=== PATIENT | male | born 1955 | race Hispanic/Latino ===

== ENCOUNTER 2023-07-14 07:00 | Day surgery (SDC) | payer BC, OTHER ==
[2023-07-09 10:46] LABS: Absolute Lymphocytes (CBC) 1.5 K/uL (0.7-4.9); Hematocrit 44.7 % (39.6-49.0); Lymphocytes % 18.6 % (15.3-44.8); MCV 90.8 fL (80-100); MPV 7.6 fL (7.6-11.3); Platelets 324 thou/uL (152-406); RBC Red Blood Cell Count 4.92 M/uL (4.33-5.43)
[2023-07-09 10:54] LABS: Protime INR 0.99
[2023-07-09 10:59] LABS: Potassium 4.4 mEq/L (3.5-5.1)
--- NOTE | 2023-07-09 10:59 | RAD REPORT ---
EXAM DESCRIPTION: RAD - Chest Pa And Lat (2 Views) - 07/09/2023 10:40 am CLINICAL HISTORY: Pre op pending heart catheterization/hypertension Chest pain. COMPARISON: No comparisons TECHNIQUE: PA and lateral views of the chest were obtained. FINDINGS: The lungs are hyperexpanded compatible with COPD. The heart is upper limit of normal in si ze. No fracture or aggressive bony process. IMPRESSION: COPD without acute process identified. The USPSTF recommends annual screening for lung cancer with low-dose CT (LDCT) in adults aged 50 to 80 years who have a 20 pack-year smoking history and currently smoke or have quit within the past 15 years.
--- NOTE | 2023-07-09 15:27 | EKG ---
Test Date: 2023-07-09 Test Time: 11:26:49 Technology Instructor: NOAH MEASUREMENT RESULTS: Intervals: Rate: 83 NV: 148 QRSD: 86 QT: 382 QTc: 448 [place]: P: 61 NV: 148 QRS: 49 T: 91 INTERPRETIVE STATEMENTS: Normal sinus rhythm Normal ECG Compared to ECG 04/10/2005 12:30:00 Myocardial infarct finding no longer present Electronically Signed On 07-09-23 15:26:17 SPEED RUNNER by Ish Parson
[2023-07-14] MEDS ORDERED: HEPA 1000U/500MLS 2,000 UNIT/1,000 ML BAG IV ONE (07:04)
[2023-07-14] MEDS ORDERED: LIDOCAINE 1% 20 ML MDV ONE (07:04)
[2023-07-14] MEDS ORDERED: VERAPAMIL HCL 10 MG/4 ML VIAL IV ONE (07:05)
[2023-07-14] MEDS ORDERED: MIDAZOLAM HCL 2 MG/2 ML INJ ONE (07:06)
[2023-07-14] MEDS ORDERED: FENTANYL CITR 100 MCG/2 ML ONE (07:06)
[2023-07-14] MEDS ORDERED: HEPARIN 5000 UNIT/ML 1 ML VIAL ONE (07:07)
[2023-07-14] MEDS ORDERED: TICAGRELOR 90 MG TABLET PO ONE (07:07)
[2023-07-14] MEDS ORDERED: HEPARIN 10,000 UNIT/10 ML VIAL IV ONE (07:07)
[2023-07-14] MEDS ORDERED: ATROPINE SULF 1 MG/10 ML SYR IV ONE (07:07)
[2023-07-14] MEDS ORDERED: CLOPIDOGREL 75 MG TABLET ONE (07:08)
[2023-07-14] MEDS ORDERED: ASPIRIN 325 MG TAB ONE (07:08)
[2023-07-14] MEDS ORDERED: NA CHLORIDE 0.9% 500 ML ONE (07:20)
[2023-07-14 08:35] VITALS: TEMP 97.8; O2SAT 100
--- NOTE | 2023-07-14 08:39 | OP ---
Date of Procedure: 07/14/2023 Surgeon: RENA MCCALL Procedures Performed: 1.Selective coronary angiogram. 2.Left heart catheterization. Indication: Chest pain with abnormal stress test. Access: Right radial artery 6-Pakistani closed with TR band. Complications: None. Bleeding: Less than 20 mL. Description Of Procedure: After risks, benefits, and alternatives were explained, the patient agreed to procedure and signed informed consent. The patient was brought into the cardiac catheterization laboratory, prepped and draped in the usual sterile fashion. Then I accessed right radial artery usi ng pediatric micropuncture kit, placed a 6-Pakistani Slender sheath and took 5-Pakistani Nuevo 4.0 catheter over the J-wire into the aortic root, engaged the left main, took standard views and then the RCA an d took standard views and then over the wire catheter was pushed into the LV across aortic valve, steven sure the LVEDP. Pullback did not record any gradient. Removed the catheter and the sheath and place d TR band with good hemostasis. Findings: 1.Left main normal. 2.LAD; proximal LAD stent with 30% ISR, mid LAD 30% stenosis. Rest of the LAD with luminal irregula rities. Diagonal branches with luminal irregularities. 3.Left circumflex is a large vessel with proximal 30% stenosis. The rest is normal. 4.RCA: It is dominant circulation. Proximal 20%, mid 30% stenosis, distal 30%, and the PLB has pro ximal 30% stenosis. 5.LVEDP is borderline at 12 mmHg. Conclusion: 1.Patent LAD stent. 2.Moderate coronary artery disease elsewhere. 3.Borderline elevated LVEDP. Recommendation: Medical management. SR/MODL Voice ID: [id number] Report ID: [id number]
[2023-07-14 09:53] VITALS: BP 113/81
== END 2023-07-14 10:00 | disposition home or self-care (01) ==
LOC: CCL 07:00
PROVIDERS: ATTEND Internal Medicine
DX: I25.10 Atherosclerotic heart disease of native coronary artery without angina pectoris (principal); T82.855A Stenosis of coronary artery stent, initial encounter; I11.0 Hypertensive heart disease with heart failure; I50.20 Unspecified systolic (congestive) heart failure; E11.9 Type 2 diabetes mellitus without complications; E78.5 Hyperlipidemia, unspecified; Z87.891 Personal history of nicotine dependence; Z79.02 Long term (current) use of antithrombotics/antiplatelets; Z79.84 Long term (current) use of oral hypoglycemic drugs; Z79.4 Long term (current) use of insulin; Z79.899 Other long term (current) drug therapy
CPT/HCPCS: 93005; 85025; 80048; 36415; 83721; 85610; 82947; 85730; 71046; 93458; 76937; C1893; Q9966; J1644; J2001; J7040; J0461; J2250; J3010

== ENCOUNTER 2024-08-18 04:22 | Emergency (ER) | payer OTHER ==
--- OUTSIDE RECORDS SUMMARY | 2024-08-18 04:27 | XMS REPORT | Continuity of Care Document ---
Author Name Unknown Address [address] [facility] [place]. [address] [place] [address] [facility] Address [address] [facility]. [address] [place] [address] Care Team Providers Care Appliance Repairer Name Role Phone KELLY JARAMILLO Attending Clinician Unavailable LAB90 Attending Clinician Unavailable NORIS SPENCER Attending Clinician Unavailable Temo Dia Attending Clinician Unavailable Temo Dia Admitting Clinician Unavailable Physician, No Primary or Family Admitting Clinic king Unavailable Payers Payer Name Policy Type Policy Number Effective Date Expirati on Date Source [facility] [id number] 2022 00:00:00 Problems Condition Name Condition Details Condition Category Status Onset Date Resolution Date Last Treatment Date Treating Clinician Comments Source Hyperkalem ia Hyperkalem ia Disease Active 03-08 00:00: 00 Zamzam nuñez Well adult exam Well adult exam Disease Active 03-08 00:00: 00 Zamzam nuñez Hypertensi on Hypertensi on Disease Active 01-27 00:00: 00 Zamzam nuñez Chronic systolic CHF (congestiv e heart failure) (multi HCC) Chronic systolic CHF (congestiv e heart failure) (multi HCC) Disease Active 01-27 00:00: 00 Zamzam Ngold - Externa l Diabetes Diabetes Disease Active 01-27 00:00: 00 Zamzam Corderoybold - Externa l Overweight (BMI 25.0-29.9) Overweight (BMI 25.0-29.9) Disease Active 01-27 00:00: 00 Zamzam Ngold - Externa l DM type 2 with diabetic mixed hyperlipid emia (multi HCC) DM type 2 with diabetic mixed hyperlipid emia (multi HCC) Disease Active 01-27 00:00: 00 Zamzam Ngold - Externa l CAD (coronary artery disease) CAD (coronary artery disease) Disease Active 07-12 00:00: 00 Zamzam Ngold - Externa l History of heart artery stent History of heart artery stent Disease Active 07-12 00:00: 00 Zamzam Ngold - Externa l Allergies, Adverse Reactions, Alerts Allergy Name Allergy Type Status Severity Reaction(s) Onset Date Inactive Date Treating Clinician Comments Source No Known Allergie s DA Active U 2021-07 00:00: [facility] Social History Social Habit Start Date Stop Date Quantity Comments Source Gender identity Enedina Roy - External Sexual orientation Abhay Roy - External History of Occupation Zamzam Roy - External History of tobacco use Cigarette Smoker Zamzam redd - External Alcoholic beverage intake 2024-07-19 00:00:00 2024-07-19 00:00:00 .43 /d Zamzam Roy - External Cigarettes smoked current (pack per day) - Reported 2023-12-07 00:00:00 2023-12-07 00:00:00 Zamzam Roy - External Cigarette pack-years 2023-12-07 00:00:00 2023-12-07 00:00:00 Zamzam Roy - External Tobacco use and exposure 2023-12-07 00:00:00 2023-12-07 00:00:00 Smokeless tobacco non-user Zamzam Roy - External Alcohol intake 2023-09-07 00:00:00 2023-09-07 00:00:00 .43 /d Zamzam Roy - Gisell History of Social function 2023-03-29 00:00:00 2023-03-29 00:00:00 Zamzam Roy - External Education 2023-01-27 00:00:00 2023-01-27 00:00:00 6 Zamzam Roy - External Alcohol Comment 2023-01-27 00:00:00 2023-01-27 00:00:00 occasionally Zamzam Roy - External Tobacco Comment 2023-01-26 00:00:00 2023-01-26 00:00:00 Stopped 40 years ago Zamzam Roy - External Sex 2020-10-08 17:31:19 2020-10-08 17:31:19 Male (finding) Zamzam Roy - External Sex assigned at 1955 00:00:00 1955 00:00:00 Zmazam Roy - External Smoking Status Start Date Stop Date Source Ex-smoker 2023-12-07 00:00:00 2023-12-07 00:00:00 Abhay murdock Kirill - External Medications Ordered Medication Name Filled Medication Name Start Date Stop Date Current Medication? Ordering Clinician Indication Dosage Frequency Signature (SIG) Comments Components Source Metoprolol Succinate 25 MG oral TABLET SR 24 HR 07-19 10:44: 14 Yes 25mg QD Take 1 tablet (25 mg total) by mouth daily. Zamzam nuñez Valsartan 80 MG oral Tablet 07-19 10:44: 14 Yes 80mg QD Take 1 tablet (80 mg total) by mouth daily. Zamzam nuñez Aspirin (Aspirin 81) 81 MG oral Tablet Delayed Response 07-19 10:44: 14 Yes 81mg QD Take 1 tablet (81 mg total) by mouth daily. Zamzam nuñez Eplerenone 25 MG oral Tablet 07-19 10:44: 14 Yes [id number] 25mg QD Take 1 tablet (25 mg total) by mouth daily. Zamzam nuñez Loratadine (CLARITIN) 10 MG oral tablet 07-19 00:00: 00 Yes [id number] 10mg QD Take 1 tablet (10 mg total) by mouth daily as needed for allergies. Zamzam nuñez Metoprolol Succinate 25 MG oral TABLET SR 24 HR 2023-07 10:53: 55 Yes 25mg QD Take 1 tablet (25 mg total) by mouth daily. Zamzam nuñez Valsartan 80 MG oral Tablet 2023-07 10:53: 55 Yes 80mg QD Take 1 tablet (80 mg total) by mouth daily. Zamzam nuñez Aspirin (Aspirin 81) 81 MG oral Tablet Delayed Response 2023-07 10:53: 55 Yes 81mg QD Take 1 tablet (81 mg total) by mouth daily. Zamzam nuñez Eplerenone 25 MG oral Tablet 2023-07 10:53: 55 Yes [id number] 25mg QD Take 1 tablet (25 mg total) by mouth daily. Zamzam nuñez Atorvastati n Calcium 40 MG oral Tablet 04-03 00:00: 00 Yes [id number] 3 40mg QD Take 1 tablet (40 mg total) by mouth nightly. Zamzam nuñez Glucose Blood (NanoVascuch Verio) in vitro Strip 03-21 00:00: 00 Yes [id number] 3 USE 1 STRIP TO CHECK GLUCOSE TWICE DAILY. Zamzam nuñez Glimepiride 2 MG oral Tablet 01-02 00:00: 00 Yes [id number] 3 2mg Take 1 tablet (2 mg total) by mouth every morning (before breakfast) . Zamzam nuñez Metoprolol Succinate 25 MG oral TABLET SR 24 HR 12-06 08:25: 20 Yes 25mg QD Take 1 tablet (25 mg total) by mouth daily. Zamzam nuñez Valsartan 80 MG oral Tablet 12-06 08:25: 20 Yes 80mg QD Take 1 tablet (80 mg total) by mouth daily. Zamzam nuñez Aspirin (Aspirin 81) 81 MG oral Tablet Delayed Response 12-06 08:25: 20 Yes 81mg QD Take 1 tablet (81 mg total) by mouth daily. Zamzam nuñez Eplerenone 25 MG oral Tablet 12-06 08:25: 20 Yes [id number] 25mg QD Take 1 tablet (25 mg total) by mouth daily. Zamzam nuñez Metformin HCl 500 MG oral Tablet 409 00:00: 00 Yes [id number] 3 500mg Take 1 tablet (500 mg total) by mouth in the morning and 1 tablet (500 mg total) in the evening. Take with meals. Zamzam nuñez Clopidogrel Bisulfate (PLAVIX) 75 MG oral Tablet 09-07 08:38: 47 09-07 00:00 :00 No [id number] 75mg Take 1 tablet (75 mg total) by mouth daily. Zamzam nuñez Metoprolol Succinate 25 MG oral TABLET SR 24 HR 09-07 08:31: 14 Yes 25mg Take 1 tablet (25 mg total) by mouth daily. Zamzam nuñez Valsartan 80 MG oral Tablet 09-07 08:31: 14 Yes 80mg Take 1 tablet (80 mg total) by mouth daily. Zamzam nuñez Aspirin (Aspirin 81) 81 MG oral Tablet Delayed Response 09-07 08:31: 14 Yes 81mg Take 1 tablet (81 mg total) by mouth daily. Zamzam nuñez Eplerenone 25 MG oral Tablet 09-07 08:31: 14 Yes [id number] 25mg Take 1 tablet (25 mg total) by mouth daily. Zamzam nuñez Continuous Blood Gluc Transmit (Y-Klubcom G6 Transmitter ) does not apply [facility] [place] 09-07 00:00: 00 06-05 00:00 :00 No [id number] 3 Monitor glucose. Zamzam nuñez Continuous Blood Gluc Sensor (Dexcom G6 Sensor) does not apply Misc 09-07 00:00: 00 06-05 00:00 :00 No [id number] 3 Check BS. Zamzam nuñez Continuous Blood Gluc Freight Car Builder (Dexcom G6 Freight Car Builder) does not apply Device 09-07 00:00: 00 06-05 00:00 :00 No [id number] 3 Check BS. Zamzam nuñez Glucose Blood (OneTouch Verio) in vitro Strip 08-23 00:00: 00 Yes [id number] 3 USE 1 STRIP TO CHECK GLUCOSE TWICE DAILY. Zamzam nuñez Eplerenone 25 MG oral Tablet 2022-07 09:37: 37 Yes [id number] 25mg Take 1 tablet (25 mg total) by mouth daily. Zamzam nuñez Clopidogrel Bisulfate (PLAVIX) 75 MG oral Tablet 2022-07 09:37: 20 Yes [id number] 75mg Take 1 tablet (75 mg total) by mouth daily. Zamzam nuñez Spironolact one 25 MG oral Tablet 2022-07 09:37: 01 06-07 00:00 :00 No 25mg Take 1 tablet (25 mg total) by mouth daily. Zamzam nuñez Metoprolol Succinate 25 MG oral TABLET SR 24 HR 2022-07 09:34: 44 Yes 25mg Take 1 tablet (25 mg total) by mouth daily. Zamzam nuñez Valsartan 80 MG oral Tablet 2022-07 09:34: 44 Yes 80mg Take 1 tablet (80 mg total) by mouth daily. Zamzam nuñez Aspirin (Aspirin 81) 81 MG oral Tablet Delayed Response 2022-07 09:34: 44 Yes 81mg Take 1 tablet (81 mg total) by mouth daily. Zamzam nuñez Lancets (OneTouch Delica Plus [id number]) does not apply Misc 2022-07 00:00: 00 Yes [id number] 3 1{appli cation} QD Inject 1 Applicatio n into the skin daily as directed. Zamzam nuñez Lancets (OneTouch Delica Plus [id number]) does not apply Misc 04-05 00:00: 00 Yes [id number] 3 USE DIRECTED ONCE DAILY Zamzam nuñez Metoprolol Succinate 25 MG oral TABLET SR 24 HR 03-03 09:51: 53 Yes 25mg Take 1 tablet (25 mg total) by mouth daily. Zamzam nuñez Valsartan 80 MG oral Tablet 03-03 09:51: 53 Yes 80mg Take 1 tablet (80 mg total) by mouth daily. Zamzam nuñez Aspirin (Aspirin 81) 81 MG oral Tablet Delayed Response 03-03 09:51: 53 Yes 81mg Take 1 tablet (81 mg total) by mouth daily. Zamzam nuñez Spironolact one 25 MG oral Tablet 03-03 09:51: 53 Yes 25mg Take 1 tablet (25 mg total) by mouth daily. Zamzam nuñez Metformin HCl 500 MG oral Tablet 01-28 00:00: 00 Yes [id number] 3 500mg Take 1 tablet (500 mg total) by mouth in the morning and 1 tablet (500 mg total) in the evening. Take with meals. Zamzam nuñez Glucose Blood in vitro Strip 01-28 00:00: 00 Yes [id number] 3 Check BS twice daily Zamzam nuñez Lancets 30G does not apply Misc 01-28 00:00: 00 Yes [id number] 3 Use as directed once daily Zamzam nuñez Blood Glucose Monitoring Suppl (Blood Glucose Monitor System) w/Device does not apply Kit 01-28 00:00: 00 06-05 00:00 :00 No [id number] 3 Use as directed once daily Zamzam nuñez Atorvastati n Calcium 40 MG oral Tablet 01-27 10:19: 03 01-27 00:00 :00 No 40mg Take 1 tablet (40 mg total) by mouth daily Zamzam nuñez Prasugrel HCl 10 MG oral Tablet 01-27 10:03: 23 01-27 00:00 :00 No Take by mouth Zamzam nuñez Metoprolol Succinate 25 MG oral TABLET SR 24 HR 01-27 09:54: 00 Yes 25mg Take 1 tablet (25 mg total) by mouth daily Zamzam nuñez Valsartan 80 MG oral Tablet 01-27 09:54: 00 Yes 80mg Take 1 tablet (80 mg total) by mouth daily Zamzam nuñez Aspirin (Aspirin 81) 81 MG oral Tablet Delayed Response 01-27 09:54: 00 Yes 81mg Take 1 tablet (81 mg total) by mouth daily Zamzam nuñez Spironolact one 25 MG oral Tablet 01-27 09:54: 00 Yes 25mg Take 1 tablet (25 mg total) by mouth daily Zamzam nuñez Atorvastati n Calcium 40 MG oral Tablet 01-27 00:00: 00 Yes [id number] 3 40mg Take 1 tablet (40 mg total) by mouth nightly Zamzam nuñez Glimepiride 2 MG oral Tablet 01-27 00:00: 00 Yes [id number] 3 2mg Take 1 tablet (2 mg total) by mouth every morning (before breakfast) Zamzam nuñez Metformin HCl 500 MG oral Tablet 01-27 00:00: 00 Yes [id number] 3 500mg Take 1 tablet (500 mg total) by mouth daily (with breakfast) Zamzam nuñez Prasugrel HCl 10 MG oral Tablet 12-10 00:00: 00 06-07 00:00 :00 No 1{tbl} Take 1 tablet by mouth daily Zamzam nuñez Immunizations Ordered Immunization Name Filled Immunization Name Date Status Comments Source Influenza Virus Vaccine, No Preserv, age 6 months and up 2022-05-21 00:00:00 Completed Zamzam Collier External Influenza Virus Vaccine, No Preserv, age 6 months and up 2022-05-21 00:00:00 Completed Zamzam Jameson Influenza Virus Vaccine, No Preserv, age 6 months and up 2021-05-20 00:00:00 Completed Zamzam Jameson Influenza Virus Vaccine, No Preserv, age 6 months and up 2021-05-20 00:00:00 Completed Zamzam Seybold - External Influenza Virus Vaccine, No Preserv, age 6 months and up Unknown Completed Zamzam Seybold - External Influenza Virus Vaccine, No Preserv, age 6 months and up Unknown Completed Zamzam Seybold - External Influenza Virus Vaccine, Quadrivalent, High Dose, Age 65 And Up Unknown Completed Zamzam S eybold - External Influenza Virus Vaccine, No Preserv, age 6 months and up Unknown Completed Zamzam Seybold - External Influenza Virus Vaccine, No Preserv, age 6 months and up Unknown Completed Zamzam Seybold - External Influenza Virus Vaccine, Quadrivalent, High Dose, Age 65 And Up Unknown Completed Zamzam S eybold - External Influenza Virus Vaccine, No Preserv, age 6 months and up Unknown Completed Zamzam Seybold - External Influenza Virus Vaccine, No Preserv, age 6 months and up Unknown Completed Zamzam Seybold - External Influenza Virus Vaccine, Quadrivalent, High Dose, Age 65 And Up Unknown Completed Zamzam S eybold - External Influenza Virus Vaccine, No Preserv, age 6 months and up Unknown Completed Zamzam Seybold - External Influenza Virus Vaccine, No Preserv, age 6 months and up Unknown Completed Zamzam Seybold - External Influenza Virus Vaccine, Quadrivalent, High Dose, Age 65 And Up Unknown Completed Zamzam S eybold - External Influenza Virus Vaccine, No Preserv, age 6 months and up Unknown Completed Zamzam Seybold - External Influenza Virus Vaccine, No Preserv, age 6 months and up Unknown Completed Zamzam Seybold - External Influenza Virus Vaccine, Quadrivalent, High Dose, Age 65 And Up Unknown Completed Zamzam S eybold - External FLUAD TRIVALENT PF Influenza Vaccine, Adjuvanted, Preserve Unknown Completed Zamzam Seybold - External Influenza Virus Vaccine, No Preserv, age 6 months and up Unknown Completed Zamzam Seybold - External Influenza Virus Vaccine, No Preserv, age 6 months and up Unknown Completed Zamzam Seybold - External Influenza Virus Vaccine, Quadrivalent, High Dose, Age 65 And Up Unknown Completed Zamzam S eybold - External FLUAD TRIVALENT PF Influenza Vaccine, Adjuvanted, Preserve Unknown Completed Zamzam Seybold - External Vital Signs Vital Name Observation Time Observation Value Comments Anaya amanueltoro Systolic blood pressure 2024-07-19 16:38:00 124 mm[Hg] Zamzam Zarate ld - External Diastolic blood pressure 2024-07-19 16:38:00 78 mm[Hg] Zamzam Seybo ld - External Heart rate 2024-07-19 16:38:00 83 /min Kelse y Seybold - External Body temperature 2024-07-19 16:38:00 36.61 Digna Zamzam Seybold - External Respiratory rate 2024-07-19 16:38:00 18 /min Zamzam Seybold - External Body height 2024-07-19 16:38:00 177.8 cm Enedina ey Seybold - External Body weight 2024-07-19 16:38:00 86.24 kg Enedina ey Seybold - External BMI 2024-07-19 16:38:00 27.28 kg/m2 Enedina ey Seybold - External Oxygen saturation in Arterial blood by Pulse oximetry 2024-07-19 16:38:00 97 /min Zamzam Seybo ld - External Systolic blood pressure 2024-06-05 16:46:00 124 mm[Hg] Zamzam Seybo ld - External Diastolic blood pressure 2024-06-05 16:46:00 82 mm[Hg] Zamzam Seybo ld - External Heart rate 2024-06-05 16:46:00 78 /min Tejinderse y Seybold - External Body temperature 2024-06-05 16:46:00 36.61 Digna Zamzam Seybold - External Respiratory rate 2024-06-05 16:46:00 16 /min Zamzam Seybold - External Body height 2024-06-05 16:46:00 177.8 cm Enedina ey Seybold - External Body weight 2024-06-05 16:46:00 86.183 kg Enedina ey Seybold - External BMI 2024-06-05 16:46:00 27.26 kg/m2 Enedina ey Seybold - External Oxygen saturation in Arterial blood by Pulse oximetry 2024-06-05 16:46:00 97 /min Zamzam Seybo ld - External Systolic blood pressure 2024-03-08 13:40:00 117 mm[Hg] Zamzam Seybo ld - External Diastolic blood pressure 2024-03-08 13:40:00 80 mm[Hg] Zamzam Seybo ld - External Heart rate 2024-03-08 13:40:00 75 /min Kelse y Seybold - External Body temperature 2024-03-08 13:40:00 35.94 Digna Zamzam Seybold - External Respiratory rate 2024-03-08 13:40:00 16 /min Zamzam Seybold - External Body height 2024-03-08 13:40:00 177.8 cm Enedina ey Seybold - External Body weight 2024-03-08 13:40:00 83.915 kg Enedina ey Seybold - External BMI 2024-03-08 13:40:00 26.54 kg/m2 Enedina ey Seybold - External Oxygen saturation in Arterial blood by Pulse oximetry 2024-03-08 13:40:00 100 /min Zamzam Seybo ld - External Systolic blood pressure 2023-12-07 13:23:00 124 mm[Hg] Zamzam Seybo ld - External Diastolic blood pressure 2023-12-07 13:23:00 71 mm[Hg] Zamzam Seybo ld - External Heart rate 2023-12-07 13:23:00 79 /min Kelse y Seybold - External Body temperature 2023-12-07 13:23:00 36.94 Digna Zamzam Seybold - External Respiratory rate 2023-12-07 13:23:00 15 /min Zamzam Seybold - External Body height 2023-12-07 13:23:00 177.8 cm Enedina ey Seybold - External Body weight 2023-12-07 13:23:00 86.183 kg Enedina ey Seybold - External BMI 2023-12-07 13:23:00 27.26 kg/m2 Enedina ey Seybold - External Oxygen saturation in Arterial blood by Pulse oximetry 2023-12-07 13:23:00 97 /min Zamzam Seybo ld - External Systolic blood pressure 2023-09-07 14:29:00 115 mm[Hg] Zamzam Seybo ld - External Diastolic blood pressure 2023-09-07 14:29:00 80 mm[Hg] Zamzam Seybo ld - External Heart rate 2023-09-07 14:29:00 87 /min Kelse y Seybold - External Body temperature 2023-09-07 14:29:00 36.11 Digna Zamzam Seybold - External Respiratory rate 2023-09-07 14:29:00 20 /min Zamzam Seybold - External Body height 2023-09-07 14:29:00 177.8 cm Enedina ey Seybold - External Body weight 2023-09-07 14:29:00 86.183 kg Enedina ey Seybold - External BMI 2023-09-07 14:29:00 27.26 kg/m2 Enedina ey Seybold - External Oxygen saturation in Arterial blood by Pulse oximetry 2023-09-07 14:29:00 98 /min Zamzam Seybo ld - External Systolic blood pressure 2023-06-07 15:33:00 125 mm[Hg] Zamzam Seybo ld - External Diastolic blood pressure 2023-06-07 15:33:00 78 mm[Hg] Zamzam Seybo ld - External Heart rate 2023-06-07 15:33:00 89 /min Kelse y Seybold - External Body temperature 2023-06-07 15:33:00 37.06 Digna Zamzam Seybold - External Respiratory rate 2023-06-07 15:33:00 15 /min Zamzam Seybold - External Body height 2023-06-07 15:33:00 177.8 cm Enedina ey Seybold - External Body weight 2023-06-07 15:33:00 83.915 kg Enedina ey Seybold - External BMI 2023-06-07 15:33:00 26.54 kg/m2 Enedina ey Seybold - External Oxygen saturation in Arterial blood by Pulse oximetry 2023-06-07 15:33:00 99 /min Zamzam Seybo ld - External Systolic blood pressure 2023-03-03 14:51:00 120 mm[Hg] Zamzam Seybo ld - External Diastolic blood pressure 2023-03-03 14:51:00 71 mm[Hg] Zamzam Seybo ld - External Heart rate 2023-03-03 14:51:00 88 /min Kelse y Seybold - External Body temperature 2023-03-03 14:51:00 36.61 Digna Zamzam Seybold - External Respiratory rate 2023-03-03 14:51:00 20 /min Zamzam Seybold - External Body height 2023-03-03 14:51:00 177.8 cm Enedina ey Seybold - External Body weight 2023-03-03 14:51:00 86.183 kg Enedina ey Seybold - External BMI 2023-03-03 14:51:00 27.26 kg/m2 Enedina ey Seybold - External Oxygen saturation in Arterial blood by Pulse oximetry 2023-03-03 14:51:00 97 /min Zamzam Seybo ld - External Systolic blood pressure 2023-01-27 14:49:00 126 mm[Hg] Zamzam Seybo ld - External Diastolic blood pressure 2023-01-27 14:49:00 73 mm[Hg] Zamzam Seybo ld - External Heart rate 2023-01-27 14:49:00 81 /min Kelse y Seybold - External Body temperature 2023-01-27 14:49:00 36.56 Digna Zamzam Seybold - External Respiratory rate 2023-01-27 14:49:00 15 /min Zamzam Seybold - External Body height 2023-01-27 14:49:00 177.8 cm Enedina ey Seybold - External Body weight 2023-01-27 14:49:00 81.647 kg Enedina ey Seybold - External BMI 2023-01-27 14:49:00 25.83 kg/m2 Enedina ey Seybold - External Oxygen saturation in Arterial blood by Pulse oximetry 2023-01-27 14:49:00 97 /min Zamzam Ngo ld - External Procedures Procedure Date / Time Performed Performing Clinicia n Source [facility] 2023-01-27 15:40:22 Kelly Jaramillo Seybold - External [id number] 2022-07-05 00:00:00 KUMSA.02 [facility] [id number] 2022-07-05 00:00:00 KUMSA.02 [facility] [id number] 2022-07-05 00:00:00 [email or web address].02 [facility] Encounters Start Date/Time End Date/Time Encounter Type Admission Type Attending [facility] Care Facility Care Department Encounter ID Source 2024-09-18 10:45:00 2024-09-18 10:45:00 Outpatient KELLY JARAMILLO [id number] Zamzam Roy 2024-09-05 09:45:00 2024-09-05 09:45:00 Outpatient PREZAS, KELLY JOHNS ZAMZAM [id number] Zamzam Roy 2024-07-19 10:45:00 2024-07-19 10:45:00 Outpatient PREZAS, KELLY JOHNS ZAMZAM [id number] Zamzam Roy 2024-06-06 00:00:00 2024-06-06 00:00:00 Outpatient PREZAS, KELLY JOHNS ZAMZAM [id number] Zamzam Corderotramaine 2024-06-05 11:00:00 2024-06-05 11:00:00 Outpatient PREZAS, KELLY JOHNS ZAMZAM [id number] Zamzam Roy 2024-06-05 08:45:00 2024-06-05 08:45:00 Outpatient PREZAS, KELLY JOHNS ZAMZAM [id number] [facility] 2024-06-05 08:10:00 2024-06-05 08:10:00 Outpatient LAB90 ZAMZAM JOHNS [id number] [facility] 2024-06-02 08:15:00 2024-06-02 08:15:00 Outpatient LAB90 ZAMZAM ZAMZAM [id number] [facility] 2024-05-22 09:40:00 2024-05-22 09:40:00 Outpatient TJ NORIS ZAMZAM JOHNS [id number] [facility] 2024-05-18 00:00:00 2024-05-18 00:00:00 Outpatient ZAMZAM JOHNS [id number] Zamzam [facility] 2024-05-18 00:00:00 2024-05-18 00:00:00 Outpatient ZAMZAM JOHNS [id number] [facility] 2024-05-17 00:00:00 2024-05-17 00:00:00 Outpatient ZAMZAM JOHNS [id number] [facility] 2024-05-15 00:00:00 2024-05-15 00:00:00 Outpatient PREZAS, KELLY ZAMZAM JOHNS [id number] Zamzam Corder[facility]aine 2024-04-02 00:00:00 2024-04-02 00:00:00 Outpatient PREZAS, KELLY JOHNS ZAMZAM [id number] Zamzam [facility] 2024-03-22 08:05:00 2024-03-22 08:05:00 Outpatient LAB90 ZAMZAM ZAMZAM [id number] Zamzam [facility] 2024-03-21 00:00:00 2024-03-21 00:00:00 Outpatient PREZAS, KELLY JOHNS ZAMZAM [id number] Zamzam [facility] 2024-03-16 00:00:00 2024-03-16 00:00:00 Outpatient PREZAS, KELLY JOHNS [id number] Zamzam [facility] 2024-03-14 08:15:00 2024-03-14 08:15:00 Outpatient LAB90 ZAMZAM ZAMZAM [id number] [facility] 2024-03-08 08:30:00 2024-03-08 08:30:00 Outpatient PREZAS, KELLY JOHNS ZAMZAM [id number] [facility] 2024-03-07 00:00:00 2024-03-07 00:00:00 Outpatient PREZAS, KELLY JOHNS ZAMZAM [id number] [facility] 2024-03-06 08:25:00 2024-03-06 08:25:00 Outpatient LAB90 ZAMZAM ZAMZAM [id number] [facility] 2024-01-14 00:00:00 2024-01-14 00:00:00 Outpatient ZAMZAM ZAMZAM [id number] [facility] 2024-01-07 00:00:00 2024-01-07 00:00:00 Outpatient PREZAS, KELLY JOHNS ZAMZAM [id number] Zamzam Seybold 2024-01-02 00:00:00 2024-01-02 00:00:00 Outpatient PREZAS, KELLY JOHNS ZAMZAM [id number] Zamzam Seybold 2023-12-07 08:30:00 2023-12-07 08:30:00 Outpatient PREZAS, KELLY JOHNS ZAMZAM [id number] Zamzam Seybold 2023-12-02 08:05:00 2023-12-02 08:05:00 Outpatient LAB90 ZAMZAM JOHNS [id number] [facility] 2023-10-14 00:00:00 2023-10-14 00:00:00 Outpatient PREZASKELLY [id number] Zamzam [facility] 2023-09-27 08:15:00 2023-09-27 08:15:00 Outpatient LAB90 ZAMZAM ZAMZAM [id number] Zamzam Seybold 2023-09-07 08:30:00 2023-09-07 08:30:00 Outpatient PREZAS, KELLY JOHNS ZAMZAM [id number] [facility] 2023-09-06 00:00:00 2023-09-06 00:00:00 Outpatient PREZAS, KELLY JOHNS ZAMZAM [id number] [facility] 2023-09-03 08:20:00 2023-09-03 08:20:00 Outpatient LAB90 ZAMZAM ZAMZAM [id number] [facility] 2023-08-23 00:00:00 2023-08-23 00:00:00 Outpatient PREZAS, KELLY JOHNS ZAMZAM [id number] [facility] 2023-07-13 00:00:00 2023-07-13 00:00:00 Outpatient ZAMZAM ZAMZAM [id number] [facility] 2023-06-22 00:00:00 2023-06-22 00:00:00 Outpatient ZAMZAM ZAMZAM [id number] [facility] 2023-06-07 09:45:00 2023-06-07 09:45:00 Outpatient PREZAS, KELLY JOHNS ZAMZAM [id number] Zamzam Sey[facility] 2023-06-04 09:45:00 2023-06-04 09:45:00 Outpatient PREZASKELLY ZAMZAM [id number] Zamzam Seybold 2023-05-31 08:10:00 2023-05-31 08:10:00 Outpatient LAB90 ZAMZAM JOHNS [id number] Zamzam Seybold 2023-04-05 00:00:00 2023-04-05 00:00:00 Outpatient PREZAS, KELLY ZAMZAM JOHNS [id number] Zamzam Seybold 2023-03-22 00:00:00 2023-03-22 00:00:00 Outpatient ZAMZAM JOHNS [id number] [facility] 2023-03-20 00:00:00 2023-03-20 00:00:00 Outpatient KELLY JARAMILLO [id number] [facility] 2023-03-03 10:00:00 2023-03-03 10:00:00 Outpatient KELLY JARAMILLO [id number] [facility] 2023-02-01 00:00:00 2023-02-01 00:00:00 Outpatient KELLY JARAMILLO [id number] [facility] 2023-02-01 00:00:00 2023-02-01 00:00:00 Outpatient ZAMZAM JOHNS [id number] [facility] 2023-01-28 00:00:00 2023-01-28 00:00:00 Outpatient KELLY JARAMILLO [id number] [facility] 2023-01-28 00:00:00 2023-01-28 00:00:00 Outpatient KELLY JARAMILLO [id number] [facility] 2023-01-27 11:00:00 2023-01-27 11:00:00 Outpatient LAB90 ZAMZAM JOHNS [id number] [facility] 2023-01-27 10:00:00 2023-01-27 10:00:00 Outpatient KELLY JARAMILLO [id number] [facility] 2023-01-27 00:00:00 2023-01-27 00:00:00 Outpatient ZAMZAM JOHNS [id number] [facility] 2023-01-27 00:00:00 2023-01-27 00:00:00 Outpatient ZAMZAM LONGOSEY [id number] [facility] 2022-07-05 06:19:00 2022-07-08 12:30:00 Inpatient EM Temo Dia HCAPM MEDI.01 [id number] [facility] 2022-07-06 06:51:00 2022-07-06 06:51:00 Outpatient Temo Dia HCACL LABO [id number] Results Test Description Test Time Test Comments Results Result Co mments Source Zamzam Roy - ExternalGLUCOSE BEDSIDE [id number] 06:45:00* Test Item Value Reference Range Interpretation Comme nts GLUCOSE BEDSIDE TESTING (gabriel t code = GLUBED) 186 mg/dL 70-110 H GLUCOSE BEDSIDE [id number] 20:29:00* Test Item Value Reference Range Interpretation Comme nts GLUCOSE BEDSIDE TESTING (gabriel t code = GLUBED) 212 mg/dL 70-110 H GLUCOSE BEDSIDE [id number] 16:07:00* Test Item Value Reference Range Interpretation Comme nts GLUCOSE BEDSIDE TESTING (gabriel t code = GLUBED) 177 mg/dL 70-110 H THYROID STIMULATING [id number] 12:08:00* Test Item Value Reference Range Interpretation Comme nts THYROID STIMULATING HORMONE (test code = TSH) 1.190 mcIU/ML 0.340-4.820 N NT PRO-BRAIN NATRIURETIC [id number] 12:03:00* Test Item Value Reference Range Interpretation Comme nts NT PRO-BRAIN NATRIURETIC PEP TI (test code = PROBNP) 5152 PG/ML 0-100 H BASIC METABOLIC [id number] 11:59:00* Test Item Value Reference Range Interpretation Comme nts SODIUM (test code = NA) 136 mmol/L 134-147 N POTASSIUM (test code = K) 4.1 mmol/L 3.4-5.0 N CHLORIDE (test code = CL) 103 mmol/L 100-108 N CARBON DIOXIDE (test code = CO2) 29 mmol/L 21-32 N ANION GAP (test code = GAP) 4.0 GAP calc 4.0-15.0 N GLUCOSE (test code = GLU) 218 MG/DL 70-110 H BLOOD UREA NITROGEN (test code = BUN) 14 MG/DL 7-18 N GLOMERULAR FILTRATION RATE (test code = GFR) >=60 max estimate estGFR >60 The Glomerular Filtration Rate is a calculated parameterbased on serum Creatinine, patient age and sex. GFR valuesless than 60 mL/min/1.73 square meters are indicative ofChronic Kidney Disease. Values less than 15 mL/min/1.73square meters indicate Kidney failure. The calculation forGFR is based on the CKD-EPI (2020) calculation. This formulais race indifferent and is the recommended formula for GFRby the National Kidney Foundation for Adults.The GFR will not calculate if the sex is unknown or if thepatient's age is <18 years. CREATININE (test code = CREAT) 0.9 MG/DL 0.8-1.3 N CALCIUM (test code = CA) 8.6 MG/DL 8.5-10.1 N [id number] 11:59:00* Test Item Value Reference Range Interpretation Comme nts MAGNESIUM (test code = MAG) 2.3 MG/DL 1.8-2.4 N GLUCOSE BEDSIDE [id number] 11:40:00* Test Item Value Reference Range Interpretation Comme nts GLUCOSE BEDSIDE TESTING (gabriel t code = GLUBED) 199 mg/dL 70-110 H GLUCOSE BEDSIDE [id number] 06:33:00* Test Item Value Reference Range Interpretation Comme nts GLUCOSE BEDSIDE TESTING (gabriel t code = GLUBED) 166 mg/dL 70-110 H GLUCOSE BEDSIDE [id number] 20:06:00* Test Item Value Reference Range Interpretation Comme nts GLUCOSE BEDSIDE TESTING (gabriel t code = GLUBED) 112 mg/dL 70-110 H GLUCOSE BEDSIDE [id number] 15:58:00* Test Item Value Reference Range Interpretation Comme nts GLUCOSE BEDSIDE TESTING (gabriel t code = GLUBED) 251 mg/dL 70-110 H GLUCOSE BEDSIDE [id number] 11:21:00* Test Item Value Reference Range Interpretation Comme nts GLUCOSE BEDSIDE TESTING (gabriel t code = GLUBED) 173 mg/dL 70-110 H GLUCOSE BEDSIDE [id number] 07:36:00* Test Item Value Reference Range Interpretation Comme nts GLUCOSE BEDSIDE TESTING (gabriel t code = GLUBED) 209 mg/dL 70-110 H COMPREHENSIVE METABOLIC [id number] 05:40:00* Test Item Value Reference Range Interpretation Comme nts SODIUM (test code = NA) 136 mmol/L 134-147 N POTASSIUM (test code = K) 3.8 mmol/L 3.4-5.0 N CHLORIDE (test code = CL) 103 mmol/L 100-108 N CARBON DIOXIDE (test code = CO2) 25 mmol/L 21-32 N ANION GAP (test code = GAP) 8.0 GAP calc 4.0-15.0 N GLUCOSE (test code = GLU) 210 MG/DL 70-110 H BLOOD UREA NITROGEN (test code = BUN) 18 MG/DL 7-18 N GLOMERULAR FILTRATION RATE (test code = GFR) >=60 max estimate estGFR >60 The Glomerular Filtration Rate is a calculated parameterbased on serum Creatinine, patient age and sex. GFR valuesless than 60 mL/min/1.73 square meters are indicative ofChronic Kidney Disease. Values less than 15 mL/min/1.73square meters indicate Kidney failure. The calculation forGFR is based on the CKD-EPI (202) calculation. This formulais race indifferent and is the recommended formula for GFRby the National Kidney Foundation for Adults.The GFR will not calculate if the sex is unknown or if thepatient's age is <18 years. CREATININE (test code = CREAT) 0.8 MG/DL 0.8-1.3 N TOTAL PROTEIN (test code = PROT) 6.0 G/DL 6.4-8.2 L ALBUMIN (test code = ALB) 2.7 G/DL 3.4-5.0 L GLOBULIN (test code = GLOB) 3.3 GM/dL ALBUMIN/GLOBULIN RATIO (test code = A/G) 0.8 RATIO 1.2-2.2 L CALCIUM (test code = CA) 8.4 MG/DL 8.5-10.1 L BILIRUBIN TOTAL (test code = BILT) 0.90 MG/DL 0.2-1.2 N SGOT/AST (test code = AST) 473 Unit/L 15-37 H SGPT/ALT (test code = ALT) 60 Unit/L 12-78 N ALKALINE PHOSPHATASE TOTAL (test code = ALKP) 81 Unit/L 50-136 N CBC W/AUTO [id number] 05:35:00* Test Item Value Reference Range Interpretation Comme nts WHITE BLOOD CELL (test code = WBC) 10.0 K/mm3 3.5-11.0 N RED BLOOD CELL (test code = RBC) 4.04 M/mm3 4.70-6.10 L HEMOGLOBIN (test code = HGB) 12.6 G/DL 12.3-15.9 N HEMATOCRIT (test code = HCT) 34.9 % 35.8-46.7 L MEAN CELL VOLUME (test code = MCV) 86.4 Fl 86.3-98.9 N MEAN CELL HGB (test code = MCH) 31.2 pg 28.9-34.4 N MEAN CELL HGB CONCETRATION (test code = MCHC) 36.1 G/DL 32.1-34.5 H RED CELL DISTRIBUTION WIDTH (test code = RDW) 12.6 SD 11.5-14.5 N PLATELET COUNT (test code = PLT) 232 K/mm3 150-450 N MEAN PLATELET VOLUME (test c ode = MPV) 9.50 fL 7.0-9.6 N NEUTROPHIL % (test code = NT%) 81.9 % 40-76 H IMMATURE GRANULOCYTE % (test code = IG%) 0.5 % 0.0-5.0 N LYMPHOCYTE % (test code = LY%) 9.8 % 20.5-51.1 L MONOCYTE % (test code = MO%) 7.2 % 1.7-9.3 N EOSINOPHIL % (test code = EO%) 0.2 % 0.0-6.0 N BASOPHIL % (test code = BA%) 0.4 % 0.0-2.0 N NUCLEATED RBC % (test code = NRBC%) 0.0 /100WBC% 0.0-1.0 N NEUTROPHIL # (test code = NT#) 8.2 K/mm3 1.8-7.6 H IMMATURE GRANULOCYTE # (test code = IG#) 0.05 x10 3/uL 0.00-0.03 H LYMPHOCYTE # (test code = LY#) 1.0 K/mm3 0.6-3.0 N MONOCYTE # (test code = MO#) 0.7 K/mm3 0.2-1.5 N EOSINOPHIL # (test code = EO#) 0.0 K/mm3 0.0-0.4 N BASOPHIL # (test code = BA#) 0.0 K/mm3 0.0-0.2 N NUCLEATED RBC # (test code = NRBC#) 0.0 K/mm3 0.00-0.01 N MANUAL DIFF REQUIRED (test c ode = MDIFF) NO DIFF/SCN CRITERIA GLUCOSE BEDSIDE [id number] 19:53:00* Test Item Value Reference Range Interpretation Comme nts GLUCOSE BEDSIDE TESTING (gabriel t code = GLUBED) 273 mg/dL 70-110 H BASIC METABOLIC [id number] 16:23:00* Test Item Value Reference Range Interpretation Comme nts SODIUM (test code = NA) 135 mmol/L 134-147 N POTASSIUM (test code = K) 4.4 mmol/L 3.4-5.0 N CHLORIDE (test code = CL) 101 mmol/L 100-108 N CARBON DIOXIDE (test code = CO2) 25 mmol/L 21-32 N ANION GAP (test code = GAP) 9.0 GAP calc 4.0-15.0 N GLUCOSE (test code = GLU) 298 MG/DL 70-110 H BLOOD UREA NITROGEN (test code = BUN) 16 MG/DL 7-18 N GLOMERULAR FILTRATION RATE (test code = GFR) >=60 max estimate estGFR >60 The Glomerular Filtration Rate is a calculated parameterbased on serum Creatinine, patient age and sex. GFR valuesless than 60 mL/min/1.73 square meters are indicative ofChronic Kidney Disease. Values less than 15 mL/min/1.73square meters indicate Kidney failure. The calculation forGFR is based on the CKD-EPI (2020) calculation. This formulais race indifferent and is the recommended formula for GFRby the National Kidney Foundation for Adults.The GFR will not calculate if the sex is unknown or if thepatient's age is <18 years. CREATININE (test code = CREAT) 1.0 MG/DL 0.8-1.3 N CALCIUM (test code = CA) 8.3 MG/DL 8.5-10.1 L LIPID PROFILE (CORONARY RISK)2022-07-05 12:00:00* Test Item Value Reference Range Interpretation Comme nts TRIGLYCERIDES (test code = TRIG) 77 MG/DL 0-150 N CHOLESTEROL (test code = CHOL) 209 MG/DL 133-200 H CHOLESTEROL/HDL RATIO (test code = CHOLHDL) 3.87 RATIO See_Comment RISK ASSOCIATED WITH CHOL/HDL RATIOS: RISK MALE FEMALE1/2 AVERAGE 3.43 3.27AVERAGE 4.97 4.442X AVERAGE 9.55 7.053X AVERAGE 23.39 11.04 NOTE THAT THE REFERENCE VALUE IS RELATED TO RISK LEVELS ASRECOMMENDED BY THE [facility]. [Automated message] The system which generated this result transmitted reference range: 0-. The reference range was not used to interpret this result as normal/abnormal. HDL CHOLESTEROL (test code = HDL) 54 MG/DL 40-59 N NON-HDL CHOLESTEROL (test code = NHDL) 155 mg/dL <130 H LIPOPROTEIN LDL (test code = LDL) 138 MG/DL 0-129 H <100 [id number] 0 - 129 NEAR OPTIMAL/ABOVE [id number] - 159 [id number] - 189 HIGH>OR= 190 VERY HIGHNOTE THAT GUIDELINES ARE PROVIDED BY NATIONAL CHOLESTEROLEDUCATION PROGRAM ADULT TREATMENT PANEL III LDL/HDL (test code = LDL/HDL) 2.55 Ratio See_Comment N [Automated [employer] ge] The system which generated this result transmitted reference range: 1.48-3.22 Avg. The reference range was not used to interpret this result as normal/abnormal. Completed by Nursing: NOComment: If not [id number] 12:00:00* Test Item Value Reference Range Interpretation Comme nts PHOSPHOROUS (test code = PHOS) 2.7 MG/DL 2.5-4.9 N Completed by Nursing: NOComment: If not [id number] 12:00:00* Test Item Value Reference Range Interpretation Comme nts MAGNESIUM (test code = MAG) 2.1 MG/DL 1.8-2.4 N Completed by Nursing: NOComment: If not doneTHYROID STIMULATING HORMONE 2022-07-05 12:00:00* Test Item Value Reference Range Interpretation Comme nts THYROID STIMULATING HORMONE (test code = TSH) 1.440 mcIU/ML 0.340-4.820 N Completed by Nursing: NOComment: If not doneTROP-I HIGH [id number] 12:00:00* Test Item Value Reference Range Interpretation Comme nts TROP-I HIGH SENSITIVITY (test code = TROPIHS) > 240327 ng/L 0-54 HH CAUTION: Units of th e current test methodology (ng/L) differfrom the prior test methodology (ng/mL) by a factor of 1000. 99th Percentile Upper Reference Limit (URL):Females: 34 ng/LMales: 54 ng/L In order to distinguish acute elevations of high sensitivitytroponin from other clinical conditions, the FourthUniversal Definition of Myocardial Infarction stressesclinical assessment and the demonstration of a rise and/orfall in serial troponin results above the URL. Results from different methodologies should not be comparedto one another as quantitative results and URLs may varyby method. Completed by Nursing: NOComment: If not doneGLYCOSYLATED HEMOGLOBIN PANEL 2022-07-05 11:25:00* Test Item Value Reference Range Interpretation Comme nts GLYCOSYLATED HEMOGLOBIN (HA1 C) (test code = GLYHGB) 8.0 % A1C 0.0-5.7 H ESTIMATED AVERAGE GLUCOSE (t est code = EAG) 183 MG/DLest COAGULATION TIME [id number] 07:02:00* Test Item Value Reference Range Interpretation Comme nts COAGULATION TIME ACTIVATED ( test code = ACT) 297 SECistat 74-125 H COAGULATION TIME [id number] 06:49:00* Test Item Value Reference Range Interpretation Comme nts COAGULATION TIME ACTIVATED ( test code = ACT) 241 SECistat 74-125 H
[2024-08-18 05:23] LABS: Absolute Basophils 0.1 K/uL (0-0.5); Absolute Eosinophils 0.2 K/uL (0-0.5); Absolute Lymphocytes (CBC) 1.7 K/uL (0.7-4.9); Absolute Monocytes 0.6 K/uL (0.1-1.3); Absolute Neutrophil 4.8 K/uL (1.8-8.0); Basophils % 0.7 % (0-1.3); Eosinophils % 2.4 % (0-4.4); Hematocrit 39.4 % (39.6-49.0); Hemoglobin 13.7 g/dL (13.6-17.9); MCH 31.2 pg (27.0-35.0); MCHC 34.7 g/dL (32.0-36.0); MCV 89.9 fL (80-100); MPV 8.2 fL (7.6-11.3); Monocytes % 8.4 % (3.3-12.3); Neutrophils % 65.5 % (41.7-73.7); Nucleated Red Blood Cells % 0.1 % (0-0); Platelets 228 thou/uL (152-406); RBC Red Blood Cell Count 4.38 M/uL (4.33-5.43)
[2024-08-18] MEDS ORDERED: MECLIZINE HCL 12.5 MG TAB ONE (05:32)
[2024-08-18] MEDS ORDERED: NA CHLORIDE 0.9% 500 ML ONE (05:33)
[2024-08-18 05:38] LABS: Albumin 3.1 g/dL (3.4-5.0); Albumin/Globulin Ratio 0.9 (1.1-1.8); Anion Gap 8.9 mEq/L (5.0-15.0); Bilirubin Direct 0.2 mg/dL (0-0.2); Bilirubin Indirect, Calculated 0.3 mg/dL (0.2-0.8); Bilirubin Total 0.5 mg/dL (0.2-1.0); Globulin 3.6 g/dL (2.3-3.5); Potassium 3.9 mEq/L (3.5-5.1); Protein, Total 6.7 g/dL (6.4-8.2); Troponin High Sensitivity 6.6 pg/mL (<58.9)
--- NOTE | 2024-08-18 06:48 | RAD REPORT ---
EXAMINATION: CT HEAD WITHOUT CONTRAST CLINICAL INDICATION: Male, 68 years old.vertigo TECHNIQUE: Axial CT images from the skull base to the vertex without intravenous contrast. Coronal an d sagittal reformatted images were created from the data set. One or more of the following dose reduction techniques were used: Automated exposure control, adjustment of the mA and/or kV according to patient size, and/or iterative reconstruction. Unless otherwise specified, incidental findings do not require dedicated imaging follow-up. [id number]. COMPARISON: No prior exam. FINDINGS: INTRACRANIAL: No acute intracranial hemorrhage. No hydrocephalus. No mass effect or midline shift. No significant white matter disease. VASCULATURE: No visualized abnormalities in the arteries or dural venous sinuses. SCALP/SKULL: No significant soft tissue or osseous abnormalities. SINUSES: The visualized paranasal sinuses and mastoid air cells are predominantly clear. IMPRESSION: No acute intracranial abnormality.
--- NOTE | 2024-08-18 06:52 | RAD REPORT ---
EXAM: Chest Single View HISTORY: dizziness COMPARISON: 07/09/2023 FINDINGS: LUNGS/PLEURA: The lungs are clear. No pleural effusions or pneumothorax. No pulmonary edema. MEDIASTINUM: The mediastinal silhouette is within normal limits. CARDIAC: The cardiac silhouette is within normal limits. UPPER ABDOMEN: No significant abnormality. BONES: No acute abnormality. LINES/TUBES/OTHER: N/A IMPRESSION: No evidence of acute cardiopulmonary disease.
--- NOTE | 2024-08-18 06:57 | EDPHYS ---
Physician Documentation [facility] Name: Benigno Ann Age: 68 yrs Sex: Male : 1955 Arrival Date: 08/18/2024 Time: 04:22 Bed 3 Private MD: ED Physician Camacho Lozada HPI: 08/18 06:12 This 68 yrs old Male presents to ER via Ambulatory with complaints of rt Dizziness, Weakness. 06:12 Patient presents to the ED with an acute onset of dizziness described as the room rt spinning. This started at about 2 AM when he rolled over. Had associated sweating, nausea without vomiting. States that the symptoms have almost completely resolved, is no longer feeling dizzy, only feeling somewhat weak. Denies other acute complaints at this time, symptoms are moderate in severity, no other aggravating alleviating factors.. Historical: - Allergies: 04:46 No Known Allergies; jj7 - PMHx: 04:46 Myocardial infarction; Diabetes mellitus; Hypertensive disorder; jj7 - PSHx: 04:46 Stented artery; jj7 - Immunization history:: Adult Immunizations up to date. - Infectious Disease History:: Denies. - Social history:: Smoking status: Patient denies any tobacco usage or history of. Patient uses alcohol, occasionally. Patient/guardian denies using street drugs, IV drugs. - Family history:: not pertinent. ROS: 06:12 Cardiovascular: Negative for chest pain, palpitations, and edema, Respiratory: Negative rt for shortness of breath, cough, wheezing, and pleuritic chest pain, MS/Extremity: Negative for injury and deformity, Skin: Negative for injury, rash, and discoloration, 06:12 Abdomen/GI: Positive for nausea, Negative for abdominal pain, vomiting, 06:12 Neuro: Positive for dizziness, weakness, Negative for Exam: 06:12 Constitutional: This is a well developed, well nourished patient who is awake, alert, rt and in no acute distress. Head/Face: Normocephalic, atraumatic. Chest/axilla: Normal chest wall appearance and motion. Nontender with no deformity. No lesions are appreciated. Cardiovascular: Regular rate and rhythm with a normal S1 and S2. No gallops, murmurs, or rubs. Normal PMI, no JVD. No pulse deficits. Respiratory: Lungs have equal breath sounds bilaterally, clear to auscultation and percussion. No rales, rhonchi or wheezes noted. No increased work of breathing, no retractions or nasal flaring. Abdomen/GI: Soft, non-tender, with normal bowel sounds. No distension or tympany. No guarding or rebound. No evidence of tenderness throughout. Skin: Warm, dry with normal turgor. Normal color with no rashes, no lesions, and no evidence of cellulitis. MS/ Extremity: Pulses equal, no cyanosis. Neurovascular intact. Full, normal range of motion. 06:12 ECG was reviewed by the Attending Physician. 06:12 Neuro: Cranial nerves II through XII intact, strength and sensation intact in upper and lower extremities, no ataxia on atkjpe-hv-[id number], speech normal, no saccadic movement on lateral gaze, head impulse and test of skew negative, no visual field deficits, strength and sensation intact in upper and lower extremities, Vital Signs: 04:44 BP 123 / 85; Pulse 71; Resp 12; Temp 97.7; Pulse Ox 100% ; Weight 83.91 kg; Height 5 jj7 ft. 8 in. ; Pain 0/10; 04:44 Body Mass Index 28.13 (83.91 kg, 172.72 cm) 7 04:44 Pain Scale: Adult jj7 MDM: 04:42 Medical Screening Exam initiated rt 07:14 Differential diagnosis: Positional vertigo, central vertigo, dehydration, dysrhythmia. rt Data reviewed: vital signs, nurses notes, lab test result(s), EKG, radiologic studies. Consideration of Admission/Observation Escalation of care including admission/observation considered. HI NTS exam is consistent with peripheral vertigo, symptoms resolved even prior to arrival, patient is asymptomatic at time of discharge. Low suspicion for a central vertigo, do not believe that he requires admission for stroke rule out.. I considered the following discharge prescriptions or medication management in the emergency department Medications were administered in the Emergency Department. See MAR. Independent interpretation of the following test(s) in the Emergency Department CT Scan: My interpretation is No intracranial hemorrhage seen on interpretation of CT scan images. Care significantly affected by the following chronic conditions: Diabetes, Hypertension. Counseling: I had a detailed discussion with the patient and/or guardian regarding the historical points, exam findings, and any diagnostic results supporting the discharge/admit diagnosis, lab results, radiology results, the need for outpatient follow up, to return to the emergency department if symptoms worsen or persist or if there are any questions or concerns that arise at home. Response to treatment: the patient's symptoms have resolved after treatment. 08/18 04:51 Order name: Basic Metabolic Panel; Complete Time: 05:39 rt 02 04:51 Order name: CBC with Diff; Complete Time: 05:39 rt 08/18 04:51 Order name: LFT's; Complete Time: 05:39 rt 08/18 04:51 Order name: Troponin HS; Complete Time: 05:39 rt 08/18 05:43 Order name: Glucose, Ancillary Testing; Complete Time: 05:48 EDMS 08/18 04:51 Order name: XRAY Chest (1 view); Complete Time: 06:53 rt 08/18 04:51 Order name: CT Head Brain wo Cont; Complete Time: 06:53 rt 08/18 04:51 Order name: Cardiac monitoring; Complete Time: 05:30 rt 08/18 04:51 Order name: EKG - Nurse/Tech; Complete Time: 05:30 rt 08/18 04:51 Order name: IV Saline Lock; Complete Time: 05:06 rt 08/18 04:51 Order name: Labs collected and sent; Complete Time: 05:06 rt 08/18 04:51 Order name: O2 Per Protocol; Complete Time: 05:30 rt 08/18 04:51 Order name: O2 Sat Monitoring; Complete Time: 05:30 rt 08/18 04:51 Order name: Accucheck; Complete Time: 05:31 rt EC:12 Rate is 68 beats/min. Rhythm is regular, Normal Sinus Rhythm with No ectopy. QRS [place] rt is Normal. MD interval is normal. QRS interval is normal. QT interval is normal. No Q waves. Administered Medications: 05:40 Drug: Meclizine PO 50 mg PO once Route: PO; al5 07:30 Follow up: Response: No adverse reaction; Marked relief of symptoms iw 05:40 Drug: NS 0.9% IV 500 ml 500 ml IV at 1 bolus once; to be given as a bolus over 30 al5 minutes Volume: 500 ml; Route: IV; Rate: 1 bolus; Site: right antecubital; 07:00 Follow up: IV Status: Completed infusion iw Disposition Summary: 08/18/24 06:56 Discharge Ordered Notes: Location: Home rt Problem: new rt Symptoms: are resolved rt Condition: Stable rt Diagnosis - Benign paroxysmal vertigo, unspecified ear rt Followup: rt - With: Rajwinder Su MD - When: 2 - 3 days - Reason: Discharge Instructions: - Discharge Summary Sheet rt - Benign Positional Vertigo rt Forms: - Medication Reconciliation Form rt - Antibiotic Education rt - Prescription Opioid Use rt - Patient Portal Instructions rt - Leadership Thank You Letter rt Prescriptions: - Meclizine 25 mg Oral Tablet - take 1 tablet ORAL route every 8 hours As needed; 30 tablet; Refills: 0, rt Product Selection Permitted Signatures: Dispatcher [employer] EDZiggy Walker RN RN jj7 Camacho Lozada MD MD rt Olga Corral RN RN al5 Saira Howell RN iw Corrections: (The following items were deleted from the chart) 04:52 04:52 BASIC METABOLIC PANEL+C.LAB.BRZ ordered. EDMS EDMS 04:52 04:52 CBC+H.LAB.BRZ ordered. EDMS EDMS 04:52 04:52 HEPATIC FUNCTION+C.LAB.BRZ ordered. EDMS EDMS 04:52 04:52 Troponin High Sensitivity+C.LAB.BRZ ordered. EDMS EDMS 04:52 04:52 Chest Single View+RAD.RAD.BRZ ordered. EDMS EDMS 04:52 04:52 Head Brain Wo Cont+CT.RAD.BRZ ordered. EDMS EDMS
--- NOTE | 2024-08-18 06:57 | ER ---
Nurse's Notes [facility] Name: Benigno Ann Age: 68 yrs Sex: Male : 1955 Arrival Date: 08/18/2024 Time: 04:22 Bed 3 Private MD: Diagnosis: Benign paroxysmal vertigo, unspecified ear Presentation: 08/18 04:44 Chief complaint: Patient states: WOKE UP ABOUT 1 HR AGO WHEN HE WENT TO TURN IN BED HE jj7 GOT VERY DIZZY. Coronavirus screen: At this time, the client does not indicate any symptoms associated with coronavirus-19. Ebola Screen: No symptoms or risks identified at this time. Initial Sepsis Screen: Does the patient meet any 2 criteria? No. Patient's initial sepsis screen is negative. Does the patient have a suspected source of infection? No. Patient's initial sepsis screen is negative. Risk Assessment: Do you want to hurt yourself or someone else? Patient reports no desire to harm self or others. Onset of symptoms was August 18, 2024. 04:44 Method Of Arrival: Ambulatory [facility] 04:44 Acuity: SUNIL 3 j Triage Assessment: 04:44 The onset of the patients symptoms was less than three hours ago. General: Appears in j7 no apparent distress. comfortable, Behavior is calm, cooperative, appropriate for age. Pain: Denies pain. Neuro: Reports dizziness. Historical: - Allergies: 04:46 No Known Allergies; jj7 - PMHx: 04:46 Myocardial infarction; Diabetes mellitus; Hypertensive disorder; jj7 - PSHx: 04:46 Stented artery; jj7 - Immunization history:: Adult Immunizations up to date. - Infectious Disease History:: Denies. - Social history:: Smoking status: Patient denies any tobacco usage or history of. Patient uses alcohol, occasionally. Patient/guardian denies using street drugs, IV drugs. - Family history:: not pertinent. Screenin:54 [facility] ED Fall Risk Assessment (Adult) History of falling in the last 3 months, [facility] including since admission No falls in past 3 months (0 pts) Confusion or Disorientation No (0 pts) Intoxicated or Sedated No (0 pts) Impaired Gait No (0 pts) Mobility Assist Device Used No (0 pt) Altered Elimination No (0 pt) Score/Fall Risk Level 0 - 2 = Low Risk Oriented to surroundings, Maintained a safe environment, Educated pt \T\ family on fall prevention, incl call for assistance when getting out of bed, Assessed \T\ reinforced patient's understanding of fall precautions. Abuse screen: Denies threats or abuse. Nutritional screening: No deficits noted. Tuberculosis screening: No symptoms or risk factors identified. Assessment: 05:31 General: Appears in no apparent distress. comfortable, Behavior is calm, cooperative. lg3 Pain: Denies pain. Neuro: No deficits noted. Figueroa Agitation-Sedation Scale (RASS): 0 - Alert and Calm Level of Consciousness is awake, alert, obeys commands, Oriented to person, place, time, situation, Reports dizziness. Cardiovascular: No deficits noted. Denies chest pain, shortness of breath, Capillary refill < 3 seconds Clubbing of nail beds is absent JVD is absent Patient's skin is warm and dry. Respiratory: No deficits noted. Airway is patent Respiratory effort is even, unlabored, Respiratory pattern is regular, symmetrical, Breath sounds are clear bilaterally. GI: No deficits noted. No signs and/or symptoms were reported involving the gastrointestinal system. : No signs and/or symptoms were reported regarding the genitourinary system. EENT: No deficits noted. No signs and/or symptoms were reported regarding the EENT system. Derm: No deficits noted. No signs and/or symptoms reported regarding the dermatologic system. Skin is intact, is healthy with good turgor, Skin is dry, Skin is normal, Skin temperature is warm. Musculoskeletal: No deficits noted. No signs and/or symptoms reported regarding the musculoskeletal system. Circulation, motion, and sensation intact. Range of motion: intact in all extremities. Vital Signs: 04:44 BP 123 / 85; Pulse 71; Resp 12; Temp 97.7; Pulse Ox 100% ; Weight 83.91 kg; Height 5 jj7 ft. 8 in. ; Pain 0/10; 04:44 Body Mass Index 28.13 (83.91 kg, 172.72 cm) j7 04:44 Pain Scale: Adult j7 ED Course: 04:29 Patient arrived in ED. gm2 04:32 Camacho Lozada MD is Attending Physician. rt 04:44 Arm band placed on right wrist. Patient placed in an exam room, on a stretcher. jj7 04:46 Triage completed. jj7 04:54 Patient has correct armband on for positive identification. Bed in low position. Call jj7 light in reach. Side rails up X 1. Adult w/ patient. Provided Education on: USE OF CALL WRIGHT. 05:05 Inserted saline lock: 20 gauge in right antecubital area, using aseptic technique. hw Blood collected. Flushed with 10 mL NS. 05:05 Basic Metabolic Panel Sent. hw 05:05 CBC with Diff Sent. hw 05:06 LFT's Sent. hw 05:06 Troponin HS Sent. hw 05:14 XRAY Chest (1 view) In Process Unspecified. EDMS 05:30 Olga Corral, RN is Primary Nurse. al5 05:31 Client placed on continuous cardiac and pulse oximetry monitoring. NIBP monitoring lg3 applied. ceramic coater machine on. Door closed. Noise minimized. Warm blanket given. Pillow given. Family accompanied patient. 05:31 EKG done, by ED staff. hw 05:31 Patient maintains SpO2 saturation greater than 95% on room air. lg3 05:33 CT Head Brain wo Cont In Process Unspecified. EDMS 06:56 Rajwinder Su MD is Referral Physician. rt 07:32 No provider procedures requiring assistance completed. IV discontinued, intact, iw bleeding controlled, No redness/swelling at site. Pressure dressing applied. Administered Medications: 05:40 Drug: Meclizine PO 50 mg PO once Route: PO; al5 07:30 Follow up: Response: No adverse reaction; Marked relief of symptoms iw 05:40 Drug: NS 0.9% IV 500 ml 500 ml IV at 1 bolus once; to be given as a bolus over 30 al5 minutes Volume: 500 ml; Route: IV; Rate: 1 bolus; Site: right antecubital; 07:00 Follow up: IV Status: Completed infusion iw Medication: 05:31 VIS not applicable for this client. lg3 Outcome: 06:56 Discharge ordered by . rt 07:32 Discharged to home ambulatory, with family, iw 07:32 Condition: good 07:32 Discharge instructions given to patient, family, Instructed on discharge instructions, follow up and referral plans. medication usage, Demonstrated understanding of instructions, follow-up care, medications, Prescriptions given X 1, 07:33 Patient left the ED. iw Signatures: Dispatcher [employer] EDMS Saira Howell RN RN iw Coco Moon, RN RN lg3 Ziggy Ricci, RN RN jj7 Camacho Lozada MD MD rt Kecia Melo 2 Olga Corral RN RN al5 Enma Munoz
[2024-08-18 07:43] VITALS: BP 123/85; TEMP 97.7; O2SAT 100
--- NOTE | 2024-08-18 13:38 | EKG ---
Test Date: 2024-08-18 Test Time: 05:27:27 Director Of Leadership Development: CRYSTAL MEASUREMENT RESULTS: Intervals: Rate: 68 IN: 154 QRSD: 88 QT: 418 QTc: 444 [place]: P: 46 IN: 154 QRS: 58 T: 121 INTERPRETIVE STATEMENTS: Normal sinus rhythm Septal infarct, age undetermined ST & T wave abnormality, consider lateral ischemia Abnormal ECG Compared to ECG 07/09/2023 11:26:49 Myocardial infarct finding now present ST (T wave) deviation now present Possible ischemia now present Electronically Signed On 08-18-24 13:37:35 INDUSTRIAL PSYCHOLOGIST by Ish Parson
== END 2024-08-18 07:33 | disposition home or self-care (01) ==
LOC: ER 04:22
DX: H81.10 Benign paroxysmal vertigo, unspecified ear (principal)
CPT/HCPCS: 93005; 85025; 80048; 36415; 82947; 80076; 84484; 70450; 71045; 96360; 99285; J8597; J7040